=== PATIENT | female | born 1960 | race Two or more races ===

== ENCOUNTER 2020-05-01 09:55 | Day surgery (SDC) | payer OTHER ==
[2020-05-30] MEDS ORDERED: [UNRECOGNIZED DRUG - OTHER] PO (13:18)
[2020-05-30] MEDS ORDERED: FENOF PO (13:19)
== END 2020-05-01 16:10 | disposition home or self-care (01) ==
LOC: AMB-ENDOS 09:55
PROVIDERS: ATTEND Surgery
DX: K62.1 Rectal polyp (principal); K63.5 Polyp of colon; K62.4 Stenosis of anus and rectum; Z20.828 Contact with and (suspected) exposure to other viral communicable diseases

== ENCOUNTER → 2020-05-30 08:00 | Outpatient (CLI) | payer OTHER ==
[~2020-05-30] VITALS: Ht 157.5 cm; Wt 77.6 kg
[~2020-05-30 08:00] MED LIST: FENOF PO; [UNRECOGNIZED DRUG - OTHER] PO
== END | disposition home or self-care (01) ==
LOC: LAB 08:00 → SURH 06-06 08:45 → EDSTATUS 06-06 09:45
PROVIDERS: ATTEND Surgery
DX: U07.1 COVID-19 (principal); K57.32 Diverticulitis of large intestine without perforation or abscess without bleeding; R10.32 Left lower quadrant pain; K57.20 Diverticulitis of large intestine with perforation and abscess without bleeding; K55.1 Chronic vascular disorders of intestine

== ENCOUNTER 2020-07-28 11:15 | Inpatient (IN) | payer OTHER ==
[2020-08-08] MEDS ORDERED: PRILOSEC OTC20 MG PO (19:10)
[2020-08-08] MEDS ORDERED: PERCOCET 5-3251 EACH PO (19:10)
== END 2020-08-08 22:42 | disposition home or self-care (01) | DRG 331 ==
LOC: SURH 08-04 07:00 → SURG 08-04 10:00 → SURH 08-04 11:15 → SURG 08-04 19:25 → OB/GYN 08-04 19:39 → O/R 08-04 20:56 → SURG 08-04 21:47
PROVIDERS: ADMIT Surgery; ATTEND Surgery
PROC: 0DBN4ZZ Excision of Sigmoid Colon, Percutaneous Endoscopic Approach (ICD-10-PCS; 2020-08-04)
PROC: 0DTP4ZZ Resection of Rectum, Percutaneous Endoscopic Approach (ICD-10-PCS; principal; 2020-08-04 07:00)
DX: K57.20 Diverticulitis of large intestine with perforation and abscess without bleeding (principal); I12.9 Hypertensive chronic kidney disease with stage 1 through stage 4 chronic kidney disease, or unspecified chronic kidney disease; N18.31 Chronic kidney disease, stage 3a

== ENCOUNTER 2021-10-29 06:08 | Day surgery (SDC) | payer OTHER ==
[~2021-10-29 06:08] MED LIST changes: +PERCOCET 5-3251 EACH PO; +PRILOSEC OTC20 MG PO
== END 2021-10-29 11:57 | disposition home or self-care (01) ==
LOC: AMB-ENDOS 06:08
PROVIDERS: ATTEND Surgery
DX: K57.30 Diverticulosis of large intestine without perforation or abscess without bleeding (principal); K55.1 Chronic vascular disorders of intestine; K64.5 Perianal venous thrombosis